=== PATIENT | male | born 2005 | race Caucasian/White ===

== ENCOUNTER 2025-09-17 14:27 | Emergency (ER) | payer OTHER ==
[2025-09-17] MEDS: Ondansetron 4 MG/2 ML SDV IVPUSH ONE (14:53)
[2025-09-17 15:07] LABS: APPEARANCE,URINE CLEAR (CLEAR); GLUCOSE,URINE NEGATIVE (NEGATIVE); OCCULT BLOOD,URINE NEGATIVE (NEGATIVE)
[2025-09-17 15:08] LABS: BASOPHILS ABSOLUTE AUTO 0.0 x10^3/uL (0.0-0.2); BASOPHILS PERCENT AUTO 0.1 % (0.2-1.2); EOSINOPHILS ABSOLUTE AUTO 0.0 x10^3/uL (0.0-0.5); EOSINOPHILS PERCENT AUTO 0.2 % (0.0-4.0); IMMATURE GRAN ABSOLUTE AUTO 0.01 x10^3/uL (0.00-0.07); IMMATURE GRAN PERCENT AUTO 0.10 % (0.00-0.43); LYMPHOCYTES ABSOLUTE AUTO 0.9 x10^3/uL (1.0-4.8); LYMPHOCYTES PERCENT AUTO 10.0 % (25.0-50.0); MONOCYTES ABSOLUTE AUTO 1.0 x10^3/uL (0.0-0.8); MONOCYTES PERCENT AUTO 11.1 % (2.0-11.0); NEUTROPHILS ABSOLUTE AUTO 7.2 x10^3/uL (1.8-7.7); NEUTROPHILS PERCENT AUTO 78.5 % (50.0-80.0); PLATELET COUNT,PLT 271 x10^3/uL (130-400); RED BLOOD CELL COUNT 5.35 x10^6/uL (4.5-6.0); WHITE BLOOD CELL COUNT,WBC 9.2 x10^3/uL (4.0-10.0)
[2025-09-17 15:11] LABS: SQUAMOUS EPITHELIAL CELLS,UR NOT SEEN /HPF (NOT SEEN)
[2025-09-17 15:24] LABS: A/G RATIO 1.08; ALANINE AMINOTRANSFERASE,ALT 29.0 U/L (16-63); ASPARTATE AMNIOTRANSFERASE,AST 25.0 U/L (15-37); BILIRUBIN TOTAL 0.7 mg/dL (0.2-1.0); BLOOD UREA NITROGEN,BUN 15.0 mg/dL (7-18); CARBON DIOXIDE,CO2 27.0 mmol/L (21-32); CHLORIDE,CL 100.0 mmol/L (98-107); CREATININE 1.0 mg/dL (0.70-1.30); EST CRCL DRUG DOSING (CG) 132.06 mL/min; ESTIMATED GFR 110.0 mL/min (>=60); GLUCOSE RANDOM 94.0 mg/dL (70-99); POTASSIUM,K 3.4 mmol/L (3.5-5.1); PROTEIN TOTAL,TP 7.5 g/dL (6.4-8.2); SODIUM,NA 137.0 mmol/L (136-145)
[2025-09-17] MEDS: Ketorolac 30 MG/ML SDV IVPUSH ONE (16:02)
[2025-09-17] MEDS: Take Home: Ondansetron 4 MG Tab.DIS, 5 Tab Pack PO ONE (16:02)
== END 2025-09-17 16:32 | disposition home or self-care (01) ==
LOC: VM.ED 14:27
DX: R11.2 Nausea with vomiting, unspecified (principal); M79.10 Myalgia, unspecified site; F12.10 Cannabis abuse, uncomplicated; E86.0 Dehydration
CPT/HCPCS: 36415; 80053; 81001; 83690; 85025; 96361; 96374; 96375; 99284; 99284-25; J1885; J2405; J7030; Q0162

== ENCOUNTER 2025-09-19 02:35 | Emergency (ER) | payer OTHER ==
[2025-09-19] MEDS: Acetaminophen/HYDROcodone 325-5 MG Tab PO ONE (04:14)
[2025-09-19] MEDS: Take Home: Acetaminophen/HYDROcodone 325-5 MG, 5 Tab Pack PO ONE (04:18)
== END 2025-09-19 04:25 | disposition home or self-care (01) ==
LOC: SUPCPDRO 02:35 → VM.ED 02:35
DX: S43.102A Unspecified dislocation of left acromioclavicular joint, initial encounter (principal); W01.0XXA Fall on same level from slipping, tripping and stumbling without subsequent striking against object, initial encounter
CPT/HCPCS: 73030-LT; 99283; 99284; A9270-GY